=== PATIENT | male | born 1975 | race Caucasian/White ===

== ENCOUNTER 2024-10-15 06:22 | Day surgery (SDC) | payer OTHER, SELFPAY | END 2024-10-15 11:31 | disposition home or self-care (01) | LOC: GI 06:22 | PROVIDERS: ATTENDING PHYSICIAN Internal Medicine | DX: Z12.11 Encounter for screening for malignant neoplasm of colon (principal); D12.2 Benign neoplasm of ascending colon; D12.3 Benign neoplasm of transverse colon; K62.1 Rectal polyp; Z83.719 Family history of colon polyps, unspecified | CPT/HCPCS: 45385; 45380; 88305 ==